=== PATIENT | male | born 1980 | race Caucasian/White ===

== ENCOUNTER 2017-06-04 16:13 | Emergency (ER) | payer OTHER ==
[2017-06-04 16:24] VITALS: RESP 16; TEMP 98
--- NOTE | 2017-06-04 16:49 | PDOC ---
Skin Rash/Insect/Abscess HPI - General Chief Complaint: Integumentary Stated Complaint: WASP STING Date Seen by Provider: 06/04/17 Time Seen by Provider: 16:47 - History of Present Illness Initial Comments: This patient is a very nice 36-year-old gentleman who presents to the emergency department with complaints of a wasp thing to his left arm over his tricep. He states that he was concerned that he may have allergy disease never been stung before and he had heard of people having anaphylactic reactions and even dying from this sort of thing surgery presented to the emergency department. By time I seen him he said the symptoms are actually improved a little bit or redness there but that his symptoms were very minimal and manageable at this time. He has no throat swelling or dyspnea or increased rash or urticaria or other concerning features. Have you received a tetanus shot in the past 10 years?: Yes - Patient Home Medications Home Medications: Home Medications Omeprazole 20 mg PO BEDTIME 07/24/16 Tamsulosin HCl [Flomax] 0.8 mg PO DAILY #10 cap 07/24/16 - Patient Allergies Allergies/Adverse Reactions: Allergies Allergy/AdvReac Type Severity Reaction Status Date / Time aspirin Allergy Severe VOMITING Verified 07/24/16 10:39 Past Medical History - heen HEENT History: Denies History Cardiovascular History: Denies History Respiratory History: Denies History Gastrointestinal History: GERD Genitourinary History: Kidney Stones Endocrine History: Denies History Musculoskeletal History: Denies History Prosthesis or Implant: No Neurological History: Denies History Blood Disorders: Denies History Psychiatric History: Denies History History of Sexually Transmitted Diseases: No Male Reproductive History: Denies History Cancer History: Denies History In Past Year Been Physically Harmed or Verbally Threatened: No History of MDRO: No History of Other Communicable Diseases: No Tobacco Use: Never Smoker Alcohol Use: Occasionally Type of alcohol normally used: Beer Substance Use Type: None Previous Surgical History: Yes Type / Date of Surgery: NASAL SURGERY Anesthesia Reactions: No Malignant Hyperthermia: No Family History of Malignant Hyperthermia: No Significant Family History: No pertinent family hx ROS - Limitations ROS Limitations: No Limitations Constitution: REPORTS: Denies Symptoms Cardiovascular: REPORTS: Denies Cardiac Symptoms Respiratory: REPORTS: Denies Resp Symptoms Skin Rash/Insect/Abscess Exam - General Appearance General Appearance: REPORTS: Alert, Cooperative - Skin Skin: REPORTS: Other (Skin over the right tricep does have an area of erythema where the hymenoptera envenomation occurred this appears benign and improving. I see no stinger intact there area cursory exam of the rest of his skin does not show any significant abnormality.) Skin Rash/Abscess Progress - Patient's Progress MDM / ED Course: This patient has a benign appearing loss staying and no clear signs of allergy or other adverse effect. I will go ahead and discharge him with some basic options for care and have him follow-up things worsen Patient Care Time - Estimated PCT Patient Care Time (In Minutes): 10 Vital Signs - Recent Vital Signs Vital Signs: Vital Signs (Last 8 hours) Temp Pulse Resp BP Pulse Ox 06/04/17 16:15 98 F 70 16 132/76 98 - VS Reviewed Vital Signs Reviewed: Yes Discharge Clinical Impression: Hymenoptera sting Qualifiers: Encounter type: initial encounter Injury intent: accidental or unintentional Qualifier Code: (T63.481A) Toxic effect of venom of other arthropod, accidental (unintentional), initial encounter Discharge Disposition: Discharged to Home Condition: Good Patient Instructions Given at Discharge: Insect Bite or Sting (ED) Additional Instructions: Use [id number] anti-inflammatories such as ibuprofen for discomfort also you can use Tylenol. Use Benadryl or other [id number] antihistamines for redness and irritation MLC use calamine lotion. Follow-up if you have worsening symptoms or other concerns Follow Up With: NONE,NONE [Primary Care Provider] -
== END 2017-06-04 16:50 | disposition home or self-care (01) ==
LOC: ER 16:13
DX: T63.461A Toxic effect of venom of wasps, accidental (unintentional), initial encounter (principal)
CPT/HCPCS: 99282